=== PATIENT | female | born 1945 | race Caucasian/White ===

== ENCOUNTER 2023-05-15 13:42 | Emergency (ER) | payer MEDICARE, SELFPAY ==
[2023-05-15 13:46] VITALS: BP 156/82
[2023-05-15 14:08] LABS: % Basophils 0.8 % (0-2); % Eosinophils 2.5 % (0-6); % Immature Granulocytes 0.1 % (0-0.5); % Monocytes 8.2 % (1.7-9.3); % Neutrophils 60.4 % (42.2-75.2); Absolute Basophils 0.1 10^3/uL (0-0.2); Absolute Eosinophils 0.2 10^3/uL (0-0.7); Absolute Lymphocytes 2.1 10^3/uL (1.2-3.4); Absolute Monocytes 0.6 10^3/uL (0.1-0.6); Absolute Neutrophils 4.4 10^3/uL (1.4-6.5); Hematocrit 39.6 % (37.0-47.0); Hemoglobin 13.7 g/dL (12.0-16.0); Mean Corp Hgb Conc. 34.6 g/dL (33.0-37.0); Mean Corpuscular Hgb 32.7 pg (27.0-31.0); Mean Corpuscular Volume 94.5 fL (81.0-99.0); Nucleated Red Blood Cells % 0 %; Platelet Count 315 10^3/uL (130-400); Red Blood Cell Count 4.19 10^6/uL (4.20-5.40); Red Cell Dist. Width 12.6 % (11.5-14.5); White Blood Cell Count 7.3 10^3/uL (4.8-10.8)
[2023-05-15 14:09] LABS: Urine Albumin Trace (Neg - Trace); Urine Bilirubin Negative (Negative); Urine Character Clear (Clear); Urine Color Yellow; Urine Glucose Negative (Negative); Urine Ketone Negative (Negative); Urine Leukocyte 1+ (Negative); Urine Nitrite Positive (Negative); Urine Occult Blood Negative (Negative); Urine Urobilinogen Negative (Neg - 1+)
[2023-05-15 14:21] LABS: ALT (SGPT) 27 U/L (0-35); AST (SGOT) 32 U/L (14-36); Albumin 4.3 g/dl (3.5-5.0); Alkaline Phosphatase 68 U/L (38-126); Blood Urea Nitrogen 17 mg/dl (7-17); Calcium 9.9 mg/dl (8.4-10.2); Carbon Dioxide 28 mmol/L (22-30); Chloride 105 mmol/L (98-107); Glucose 109 mg/dl (70-99); Lipase 85 U/L (23-300); Sodium 138 mmol/L (135-145); Total Bilirubin 0.6 mg/dl (0.2-1.3); eGFR > 60.00
[2023-05-15 14:27] LABS: Urine Mucus Few
[2023-05-15 14:28] LABS: Urine Amorphous Seen
[2023-05-15 14:29] LABS: Urine Bacteria Many (Negative)
--- NOTE | 2023-05-15 15:08 | ED.GENMED ---
Addendum entered and electronically signed by Adam Chauhan PA-C 05/18/23 15:31:
Positive Ucx, d/w patient. She is asymptomatic, SHe has hx of chronic recurrent UTI, she states she has had numerous positive urinalyses when asymptomatic. This is likely indicative of colonization. Recommend urology f/u
Original Note:
History of Present Illness
General
Chief Complaint: Abdominal Pain
Source: patient and records
Exam Limitations: none
Time Seen by Provider: 05/15/23 14:53
Nursing documentation reviewed up to this point in time: agreed with
Travel History
Have you had any contact with someone who has COVID-19?: No
Do you have any symptoms of coronavirus? Fever > 100 degrees, chills, cough, shortness of breath, sore throat, loss of taste or smell, muscle aches, or headache?: No
History of Present Illness
History of Present Illness:
77-year-old female 10 days of an uncomfortable feeling in her right abdomen intermittent somewhat crampy no nausea no vomiting for about 12 hours had increased intensity with some loose stools, no fever chills no chest pain no dysuria or frequency
Has had colonoscopies had recurrent polyps that required the removal by Dr. Chavez, also has had recurrent UTIs treated with urinary alkalinization by Dr. Ludwig
Years ago had sounds like a LEEP procedure, 28years ago she had breast lumpectomy
She is also gallbladder appendix and ovaries
Past History
Past History
ED Past Medical History: Cancer (breast)
ED Past Surgical History: Gynecological, Orthopedic and Tonsilectomy; Negative Appendectomy, Bowel resection, Cholecystectomy or
Social History
Tobacco: Non-smoker
Alcohol: None
Drug: None
Personal:
Living: alone
Employment: Employed
Family History
Family History: Other
Review of Systems
Review of Systems
All Other Systems: Not applicable
Constitutional: Denies fever or fatigue
ABD/GI: Reports abdominal pain and other (Mild loose stools)
Endocrine: Reports no symptoms
Hematologic/Lymphatic: Reports no symptoms
Psychiatric: Reports no symptoms
Phy Exam
Physical Exam
Physical Exam:
Physical Exam
General: no apparent distress, not acutely ill
Neck: No jaundice
Heart: s1/s2 regular rate and rhythm, no murmur. equal radial pulses.
Lungs: no acute respiratory distress. clear bilaterally
Abdomen: Mild right lower abdominal tenderness
Neuro: alert and oriented. no focal neurological deficits
Skin: no rash
Psychiatric: well kept. interactive and cooperative
Extremities: no edema.
Course
Orders/Labs/Results
Orders:
Orders
05/15/23 13:59
Complete Blood Count/With Diff Urgent
Comprehensive Metabolic Panel Urgent
Lipase Urgent
Urinalysis Reflex To Culture Urgent
Date Specimen was Collected: 05/15/23
Time Specimen was Collected: 13:49
Urine Microscopic Reflex Cult Urgent
Urine Culture Urgent
MALINDA Source: U
Specimen Description:
Date Specimen was Collected: 05/15/23
Time Specimen was Collected: 13:49
05/15/23 15:04
CT Abd/pel W Iv And Oral Contr Urgent
Comment:
Reason For Exam: right sided abd pain
Iohexol [Omnipaque] See Protocol PO NOW STA
Ketorolac [Toradol] 15 mg IV NOW STA
Abnormal Lab Results
05/15/23
13:59
RBC 4.19 L 10^6/uL
(4.20-5.40)
MCH 32.7 H pg
(27.0-31.0)
Glucose 109 H mg/dl
(70-99)
Urine Nitrite (Reflex) Positive A
(Negative)
Leukocyte Esterase Rfl 1+ A
(Negative)
Urine RBC 3-6 A /HPF
(0-2)
Urine Bacteria (Reflex) Many A
(Negative)
05/15/23 13:59
05/15/23 13:59
Vital Signs
Initial and Last Documented VS:
Initial Vital Signs
Temp Pulse Resp BP Pulse Ox
98.3 F 83 16 156/82 98
05/15/23 13:46 05/15/23 13:46 05/15/23 13:46 05/15/23 13:46 05/15/23 13:46
Last Documented Vital Signs
Temp Pulse Resp BP Pulse Ox
97.9 F 89 16 147/71 96
05/15/23 19:07 05/15/23 19:07 05/15/23 19:07 05/15/23 19:07 05/15/23 19:07
MDM/Problems Addressed
Differential Diagnosis Includes:
Colitis diverticulitis appendicitis ovarian pathology UTI
MDM/Problems Addressed:
Right-sided about
Chronic conditions affecting care:
Colonic polyp recurrent UTI
Acute Exacerbation and/or Progression of Chronic Illness:
Colonic polyp UTI
*Critical Care Note
Total Time (30-74mins, 75-104mins- exclusive of procedures): Not Applicable
Update Note
Update Note:
Update CT report noted patient appears comfortable does have a gallstone and believe this explains her right pelvic pain, however follow-up with her PCP ER for worsening symptoms
ED Attending Note
-
Portions of this chart may have been created with voice recognition software.� Occasional wrong word or��sound alike� substitutions may have occurred due to the inherent limitations of voice recognition software.
Discharge Plan
Departure
Patient Disposition: Home (Routine Discharge)
Date of Disposition: 05/15/23
Time of Disposition: 20:04
Patient with high blood pressure during this ER visit?: No
Condition: Good
Discharge Problem:
Abdominal pain
Instructions: Abdominal Pain
Prescriptions:
No Action
methenamine hippurate 1 GRAM tablet
1 g PO BID
raloxifene 60 MG tablet
60 mg PO DAILY
calcium citrate 200 MG tablet
200 mg PO DAILY
Align 4 MG capsule
4 mg PO DAILY
cranberry extract [Ellura] 200 MG capsule
1 tab PO DAILY
[place] 3/Fish Oil
2,400 mg PO DAILY
multivitamin Tablet
1 tab PO DAILY
Referrals:
Reyes Cottrell MD [Family Provider] - Next open appointment
Activity Restrictions/Additional Instructions:
Ibuprofen every 6-8 hours
Follow-up with your family doctor return to the ER for worsening symptoms
Interventions
Interventions:
*Risk Screen - Suicide Last Done: 05/15/23 13:46
*General Assessment Last Done: 05/15/23 13:46
*Neglect/Abuse Screening Last Done: 05/15/23 13:46
ED- Fall Risk Assessment Last Done: 05/15/23 16:08
*ED COVID-19 Vaccine History Last Done: 05/15/23 16:08
RU-Pjbujq-Wvzsqvbxtx Assessment Last Done: 05/15/23 19:20
[2023-05-15] MEDS: OMNIPAQUE 50 ML PO (16:06)
[2023-05-15 19:05] VITALS: BMI 27.7
[2023-05-15 19:07] VITALS: BP 147/71
--- NOTE | 2023-05-15 19:11 | EDRN ---
For 10 days, pt has had R side abdominal discomfort that comes and goes. Today, it was more uncomfortable. Pt took 2 tylenol and a motrin at 1000 for discomfort. Pt saw primary doctor on and has an outpatient CT scheduled for Tuesday. Pt
has had loose stools. Pt ate breakfast at 0800 and has only had a cup of chicken bouillon since. Pt with decreased appetite. Occasional 'sweep' of nausea. No vomiting. No fever/chills/cough, cp, sob. urinary symptoms, weakness, dizziness,
constipation/diarrhea.
--- NOTE | 2023-05-15 20:05 | ED.GENMED ---
History of Present Illness
General
Chief Complaint: Abdominal Pain
Time Seen by Provider: 05/15/23 14:53
Travel History
Have you had any contact with someone who has COVID-19?: No
Do you have any symptoms of coronavirus? Fever > 100 degrees, chills, cough, shortness of breath, sore throat, loss of taste or smell, muscle aches, or headache?: No
Past History
Past History
ED Past Medical History: Cancer (breast)
ED Past Surgical History: Gynecological, Orthopedic and Tonsilectomy; Negative Appendectomy, Bowel resection, Cholecystectomy or
Social History
Tobacco: Non-smoker
Alcohol: None
Drug: None
Personal:
Living: alone
Employment: Employed
Family History
Family History: Other
Course
Orders/Labs/Results
Orders:
Orders
05/15/23 13:59
Complete Blood Count/With Diff Urgent
Comprehensive Metabolic Panel Urgent
Lipase Urgent
Urinalysis Reflex To Culture Urgent
Date Specimen was Collected: 05/15/23
Time Specimen was Collected: 13:49
Urine Microscopic Reflex Cult Urgent
Urine Culture Urgent
MALINDA Source: U
Specimen Description:
Date Specimen was Collected: 05/15/23
Time Specimen was Collected: 13:49
05/15/23 15:04
CT Abd/pel W Iv And Oral Contr Urgent
Comment:
Reason For Exam: right sided abd pain
Iohexol [Omnipaque] See Protocol PO NOW STA
Ketorolac [Toradol] 15 mg IV NOW STA
Abnormal Lab Results
05/15/23
13:59
RBC 4.19 L 10^6/uL
(4.20-5.40)
MCH 32.7 H pg
(27.0-31.0)
Glucose 109 H mg/dl
(70-99)
Urine Nitrite (Reflex) Positive A
(Negative)
Leukocyte Esterase Rfl 1+ A
(Negative)
Urine RBC 3-6 A /HPF
(0-2)
Urine Bacteria (Reflex) Many A
(Negative)
05/15/23 13:59
05/15/23 13:59
Vital Signs
Initial and Last Documented VS:
Initial Vital Signs
Temp Pulse Resp BP Pulse Ox
98.3 F 83 16 156/82 98
05/15/23 13:46 05/15/23 13:46 05/15/23 13:46 05/15/23 13:46 05/15/23 13:46
Last Documented Vital Signs
Temp Pulse Resp BP Pulse Ox
97.9 F 89 16 147/71 96
05/15/23 19:07 05/15/23 19:07 05/15/23 19:07 05/15/23 19:07 05/15/23 19:07
ED Attending Note
-
Portions of this chart may have been created with voice recognition software.� Occasional wrong word or��sound alike� substitutions may have occurred due to the inherent limitations of voice recognition software.
Discharge Plan
Departure
Patient Disposition: Home (Routine Discharge)
Date of Disposition: 05/15/23
Time of Disposition: 20:04
Patient with high blood pressure during this ER visit?: No
Condition: Good
Discharge Problem:
Abdominal pain
Instructions: Abdominal Pain
Prescriptions:
No Action
methenamine hippurate 1 GRAM tablet
1 g PO BID
raloxifene 60 MG tablet
60 mg PO DAILY
calcium citrate 200 MG tablet
200 mg PO DAILY
Align 4 MG capsule
4 mg PO DAILY
cranberry extract [Ellura] 200 MG capsule
1 tab PO DAILY
[place] 3/Fish Oil
2,400 mg PO DAILY
multivitamin Tablet
1 tab PO DAILY
Referrals:
Reyes Cottrell MD [Family Provider] - Next open appointment
Activity Restrictions/Additional Instructions:
Ibuprofen every 6-8 hours
Follow-up with your family doctor return to the ER for worsening symptoms
Interventions
Interventions:
*Risk Screen - Suicide Last Done: 05/15/23 13:46
*General Assessment Last Done: 05/15/23 13:46
*Neglect/Abuse Screening Last Done: 05/15/23 13:46
ED- Fall Risk Assessment Last Done: 05/15/23 16:08
*ED COVID-19 Vaccine History Last Done: 05/15/23 16:08
DK-Dejkkr-Yhcazzgbrr Assessment Last Done: 05/15/23 19:20
== END 2023-05-15 20:27 | disposition home or self-care (01) ==
LOC: EMR 13:42
PROVIDERS: Emergency Medicine; EMERGENCY PHYSICIAN Emergency Medicine; FAMILY PHYSICIAN Family Medicine
DX: N39.0 Urinary tract infection, site not specified (principal); B96.20 Unspecified Escherichia coli [E. coli] as the cause of diseases classified elsewhere; Z85.3 Personal history of malignant neoplasm of breast; Z87.440 Personal history of urinary (tract) infections; Z90.49 Acquired absence of other specified parts of digestive tract; K80.20 Calculus of gallbladder without cholecystitis without obstruction
CPT/HCPCS: 99285; 96374; 74177; 80053; 81003; 81015; 83690; 85025; 87077; 87086; 87186; Q9967

== ENCOUNTER → 2023-10-17 08:11 | Outpatient (REF) | payer MEDICARE, SELFPAY | LOC: WDC 08:11 | PROVIDERS: ATTENDING PHYSICIAN Obstetrics & Gynecology Gynecology; FAMILY PHYSICIAN Family Medicine | DX: Z12.31 Encounter for screening mammogram for malignant neoplasm of breast (principal) | CPT/HCPCS: 77063; 77067 ==

== ENCOUNTER → 2024-03-09 13:06 | Outpatient (REF) | payer MEDICARE, SELFPAY ==
[2024-03-09 14:09] LABS: % Basophils 0.8 % (0-2); % Eosinophils 3.8 % (0-6); % Immature Granulocytes 0.5 % (0-0.5); % Lymphocytes 24.5 % (20.5-51.1); % Monocytes 9.5 % (1.7-9.3); % Neutrophils 60.9 % (42.2-75.2); Absolute Basophils 0.1 10^3/uL (0-0.2); Absolute Eosinophils 0.3 10^3/uL (0-0.7); Absolute Lymphocytes 1.6 10^3/uL (1.2-3.4); Absolute Monocytes 0.6 10^3/uL (0.1-0.6); Hematocrit 38.5 % (37.0-47.0); Hemoglobin 13.5 g/dL (12.0-16.0); Mean Corp Hgb Conc. 35.1 g/dL (33.0-37.0); Mean Corpuscular Hgb 35.1 pg (27.0-31.0); Nucleated Red Blood Cells % 0 %; Platelet Count 328 10^3/uL (130-400); Red Blood Cell Count 3.85 10^6/uL (4.20-5.40); Red Cell Dist. Width 14.3 % (11.5-14.5); White Blood Cell Count 6.6 10^3/uL (4.8-10.8)
[2024-03-09 15:50] LABS: Blood Urea Nitrogen 20 mg/dl (7-17); Calcium 9.6 mg/dl (8.4-10.2); Carbon Dioxide 29 mmol/L (22-30); Chloride 104 mmol/L (98-107); Glucose 97 mg/dl (70-99); Potassium 4.1 mmol/L (3.5-5.1); Sodium 143 mmol/L (135-145); eGFR > 60.00
== END ==
LOC: RCS 13:06
PROVIDERS: ATTENDING PHYSICIAN Student in an Organized Health Care Education/Training Program; FAMILY PHYSICIAN Family Medicine
DX: Z01.818 Encounter for other preprocedural examination (principal)
CPT/HCPCS: 36415; 80048; 85025; 93005

== ENCOUNTER → 2024-05-02 06:24 | Day surgery (SDC) | payer MEDICARE, SELFPAY | LOC: GI 06:24 | PROVIDERS: ATTENDING PHYSICIAN Internal Medicine Gastroenterology | PROC: 0DBL8ZX Excision of Transverse Colon, Via Natural or Artificial Opening Endoscopic, Diagnostic (ICD-10-PCS; 2024-05-02) | PROC: 0DBN8ZX Excision of Sigmoid Colon, Via Natural or Artificial Opening Endoscopic, Diagnostic (ICD-10-PCS; 2024-05-02) | PROC: 0DBP8ZX Excision of Rectum, Via Natural or Artificial Opening Endoscopic, Diagnostic (ICD-10-PCS; 2024-05-02) | DX: Z12.11 Encounter for screening for malignant neoplasm of colon (principal); Z86.0100 Personal history of colon polyps, unspecified; D12.3 Benign neoplasm of transverse colon; D12.5 Benign neoplasm of sigmoid colon; D12.8 Benign neoplasm of rectum; K57.30 Diverticulosis of large intestine without perforation or abscess without bleeding; K64.8 Other hemorrhoids | CPT/HCPCS: 45380; 88305 ==

== ENCOUNTER 2024-10-01 17:57 | Emergency (ER) | payer MEDICARE, SELFPAY ==
[2024-10-01 18:00] VITALS: BP 173/89
[2024-10-01 18:24] LABS: % Eosinophils 3.8 % (0-6); % Immature Granulocytes 0.1 % (0-0.5); % Lymphocytes 23.4 % (20.5-51.1); % Monocytes 10.9 % (1.7-9.3); % Neutrophils 60.8 % (42.2-75.2); Absolute Basophils 0.1 10^3/uL (0-0.2); Absolute Eosinophils 0.3 10^3/uL (0-0.7); Absolute Lymphocytes 1.8 10^3/uL (1.2-3.4); Absolute Monocytes 0.9 10^3/uL (0.1-0.6); Absolute Neutrophils 4.7 10^3/uL (1.4-6.5); Hematocrit 40.2 % (37.0-47.0); Hemoglobin 14.1 g/dL (12.0-16.0); Mean Corp Hgb Conc. 35.1 g/dL (33.0-37.0); Mean Corpuscular Hgb 34.3 pg (27.0-31.0); Mean Corpuscular Volume 97.8 fL (81.0-99.0); Mean Platelet Volume 8.7 fL (7.4-10.4); Nucleated Red Blood Cells % 0 %; Platelet Count 353 10^3/uL (130-400); Red Blood Cell Count 4.11 10^6/uL (4.20-5.40); Red Cell Dist. Width 13.6 % (11.5-14.5); White Blood Cell Count 7.8 10^3/uL (4.8-10.8)
[2024-10-01 18:41] LABS: ALT (SGPT) 21 U/L (0-35); AST (SGOT) 25 U/L (14-36); Albumin 4.5 g/dl (3.5-5.0); Alkaline Phosphatase 88 U/L (38-126); Blood Urea Nitrogen 13 mg/dl (7-17); Calcium 10.2 mg/dl (8.4-10.2); Carbon Dioxide 28 mmol/L (22-30); Chloride 107 mmol/L (98-107); Glucose 106 mg/dl (70-99); Potassium 4.8 mmol/L (3.5-5.1); Sodium 142 mmol/L (135-145); Total Bilirubin 0.4 mg/dl (0.2-1.3); Total Protein 7.5 g/dl (6.3-8.2); eGFR > 60.00
[2024-10-01 21:02] VITALS: BMI 28.0
[2024-10-01 21:05] VITALS: BP 164/84
[2024-10-01 21:32] LABS: Urine Albumin Negative (Neg - Trace); Urine Bilirubin Negative (Negative); Urine Character Clear (Clear); Urine Color Yellow; Urine Glucose Negative (Negative); Urine Ketone Negative (Negative); Urine Leukocyte 1+ (Negative); Urine Nitrite Negative (Negative); Urine Occult Blood 2+ (Negative); Urine Urobilinogen Negative (Neg - 1+)
[2024-10-01 21:47] LABS: Urine Bacteria Moderate (Negative); Urine Red Blood Cell 0-2 /HPF (0-2)
[2024-10-01 22:00] VITALS: BP 148/79
--- NOTE | 2024-10-01 22:54 | ED.GENMED ---
History of Present Illness
General
Chief Complaint: Back Pain
Time Seen by Provider: 10/01/24 21:56
History of Present Illness
History of Present Illness:
79-year-old female with history of frequent UTIs on Bifidobacterium presenting to the emergency department for back pain. Patient notes about 2 weeks ago she was lifting furniture by herself. The following day she started to have generalized lower
back pain. She had a routine follow-up appoint with her urologist, was told that her urine dipstick was abnormal and a urine culture was sent. She then followed up with her primary care doctor regarding the back pain, with urine culture suspected
to be positive and patient was started on Keflex. She notes the back pain has overall been improving with modalities such as ibuprofen and lidocaine patches, as well as cyclobenzaprine, however started to be constipated. She took MiraLAX 1 time
without significant relief. Denies any vomiting. She presents today because she wanted to make sure that she did not have a kidney infection. Denies any urinary complaints. Denies additional acute medical complaints
Past History
Past History
ED Past Medical History: Cancer (breast)
ED Past Surgical History: Gynecological, Orthopedic and Tonsilectomy; Negative Appendectomy, Bowel resection, Cholecystectomy or
Social History
Tobacco: Non-smoker
Alcohol: None
Drug: None
Personal:
Living: alone
Employment: Employed
Family History
Family History: Other
Phy Exam
Physical Exam
Physical Exam:
General: Well-appearing, no clinical signs of dehydration, nontoxic and in no acute distress
HEENT: protecting airway
Neck: appears supple
CV: Normal heart rate, regular rhythm
Resp: No accessory muscle use, no increased work of breathing, lungs clear to auscultation bilaterally
Abd: Soft and non-distended, no tenderness to palpation. No CVA tenderness.
Extremities: No deformities, no swelling. No midline spinal tenderness. Mild generalized tenderness to the musculature of the mid back. No overlying skin changes
Neuro: alert, no focal neurologic deficit
: deferred
Rectal: deferred
Psych: Normal affect
Skin: Intact
Course
Orders/Labs/Results
Orders:
Orders
10/01/24 18:14
Complete Blood Count/With Diff Urgent
Comprehensive Metabolic Panel Urgent
10/01/24 21:25
Urinalysis Reflex To Culture Urgent
Date Specimen was Collected: 10/01/24
Time Specimen was Collected: 21:23
Urine Microscopic Reflex Cult Urgent
Urine Culture Urgent
MALINDA Source: U
Specimen Description:
Date Specimen was Collected: 10/01/24
Time Specimen was Collected: 21:23
Abnormal Lab Results
10/01/24 10/01/24
18:14 21:25
RBC 4.11 L 10^6/uL
(4.20-5.40)
MCH 34.3 H pg
(27.0-31.0)
Absolute Monos (auto) 0.9 H 10^3/uL
(0.1-0.6)
Monocytes % 10.9 H %
(1.7-9.3)
Glucose 106 H mg/dl
(70-99)
Ur Occult Blood Reflex 2+ A
(Negative)
Leukocyte Esterase Rfl 1+ A
(Negative)
Urine Bacteria (Reflex) Moderate A
(Negative)
10/01/24 18:14
10/01/24 18:14
Vital Signs
Initial and Last Documented VS:
Initial Vital Signs
Temp Pulse Resp BP Pulse Ox
98.2 F 82 16 173/89 97
10/01/24 18:00 10/01/24 18:00 10/01/24 18:00 10/01/24 18:00 10/01/24 18:00
Last Documented Vital Signs
Temp Pulse Resp BP Pulse Ox
98.2 F 81 18 148/79 95
10/01/24 18:00 10/01/24 22:30 10/01/24 21:05 10/01/24 22:00 10/01/24 22:55
MDM/Problems Addressed
MDM/Problems Addressed:
79-year-old female presenting to the emergency department for lower back pain. Vital signs on arrival are significant for high blood pressure, however resolved without intervention.
On exam patient is resting comfortably, no acute distress or discomfort. Overall reassuring examination. Regarding patient's back pain, does appear consistent with musculoskeletal etiology. Do not suspect any concerning etiology to patient's
presenting symptoms. Do not suspect any spinal fracture in the absence of any direct trauma, and no midline spinal tenderness. No fever, systemic symptoms, or midline tenderness, without concern for spinal abscess or infection. No red flag such
as bowel or bladder incontinence, focal weakness, or any sensory deficits on exam, without present concern for spinal compression. No CVA tenderness with lower suspicion for pyelonephritis. In addition, no leukocytosis and urine obtained without
significant sign of infection. Regarding patient's constipation, minimal distention to the abdomen, soft and nondistended without any focal tenderness. Without present concern for obstruction. No present in September. Patient notes that her back pain
is overall improving with ibuprofen. Advised continuing this medication. Does note that her constipation started after taking the cyclobenzaprine, which is a side effect of the medication. Advised that she stop this medication and start a daily
regimen for constipation including MiraLAX and Dulcolax. Also advise close outpatient primary care follow-up. Ultimately feel stable for discharge. Return precautions discussed and patient verbalized understanding
*Pulse Oximetry
SaO2: 95
Oxygen Mode of Delivery: Room air
Patient hypoxic: no
*Critical Care Note
Total Time (30-74mins, 75-104mins- exclusive of procedures): Not Applicable
ED Attending Note
-
Portions of this chart may have been created with voice recognition software.� Occasional wrong word or��sound alike� substitutions may have occurred due to the inherent limitations of voice recognition software.
Discharge Plan
Departure
Patient Disposition: Home (Routine Discharge)
Date of Disposition: 10/01/24
Time of Disposition: 22:55
Patient with high blood pressure during this ER visit?: Yes
Condition: Good
Discharge Problem:
Constipation, Musculoskeletal back pain
Instructions: Low Back Pain (DC), Constipation in adults - ED discharge instructions, BLOOD PRESSURE
Prescriptions:
No Action
methenamine hippurate 1 GRAM tablet
1 g PO BID
raloxifene 60 MG tablet
60 mg PO DAILY
calcium citrate 200 MG tablet
200 mg PO DAILY
Align (B.infantis) 4 MG capsule
4 mg PO DAILY
cranberry extract [Ellura] 200 MG capsule
1 tab PO DAILY
[place] 3/Fish Oil
2,400 mg PO DAILY
multivitamin Tablet
1 tab PO DAILY
ibuprofen 400 mg tablet
400 mg PO Q8H PRN (Reason: fever or pain) Qty: 20 0RF
Referrals:
Reyes Cottrell MD [Family Provider, Family Practice]
Activity Restrictions/Additional Instructions:
You were seen in the emergency department for back pain
You were found to have reassuring laboratory analysis and urinalysis. We suspect that you are constipated. Please take MiraLAX and additional stool softener such as Dulcolax daily until your constipation improves.
Please follow-up closely with your primary care physician.
Return to the emergency department for any worsening of your symptoms, or any development of chest pain, difficulty breathing, abdominal pain with persistent vomiting and inability to tolerate food or liquid by mouth (concern for dehydration),
weakness, headache or confusion, fever greater than 100.4, or any additional symptoms that are concerning to you.
Thank you for choosing [facility].
Interventions
Interventions:
*Risk Screen - Suicide Last Done: 10/01/24 18:02
*General Assessment Last Done: 10/01/24 21:02
*Neglect/Abuse Screening Last Done: 10/01/24 18:02
*ED- Fall Risk Assessment Last Done: 10/01/24 21:02
*ED COVID-19 Vaccine History Last Done: 10/01/24 21:02
*Nursing Disposition Last Done: 10/01/24 23:06
ED-Musculoskeletal Assessment Last Done: 10/01/24 21:08
Discharge Date and Time
Discharge Date/Time: 10/01/24 23:06
Print Language: [id number]
== END 2024-10-01 23:06 | disposition home or self-care (01) ==
LOC: EMR 17:57
PROVIDERS: Student in an Organized Health Care Education/Training Program; EMERGENCY PHYSICIAN Student in an Organized Health Care Education/Training Program; FAMILY PHYSICIAN Family Medicine
DX: M54.50 Low back pain, unspecified (principal); K59.00 Constipation, unspecified; R03.0 Elevated blood-pressure reading, without diagnosis of hypertension; Z87.440 Personal history of urinary (tract) infections
CPT/HCPCS: 99283; 80053; 81003; 81015; 85025; 87086; 87088

== ENCOUNTER → 2024-10-29 10:54 | Outpatient (REF) | payer MEDICARE, SELFPAY | LOC: RAD 10:54 | PROVIDERS: ATTENDING PHYSICIAN Nurse Practitioner Adult Health; FAMILY PHYSICIAN Family Medicine | DX: R14.0 Abdominal distension (gaseous) (principal); R10.2 Pelvic and perineal pain | CPT/HCPCS: 76830; 76856 ==

== ENCOUNTER → 2024-10-30 07:17 | Outpatient (REF) | payer MEDICARE, SELFPAY | LOC: WDC 07:17 | PROVIDERS: ATTENDING PHYSICIAN Obstetrics & Gynecology Gynecology; FAMILY PHYSICIAN Family Medicine | DX: Z12.31 Encounter for screening mammogram for malignant neoplasm of breast (principal); Z85.3 Personal history of malignant neoplasm of breast | CPT/HCPCS: 77063; 77067 ==

== ENCOUNTER → 2025-01-05 08:46 | Outpatient (REF) | payer MEDICARE, SELFPAY | LOC: PAVMRI 08:46 | PROVIDERS: ATTENDING PHYSICIAN Physical Medicine & Rehabilitation; FAMILY PHYSICIAN Family Medicine | DX: M54.16 Radiculopathy, lumbar region (principal) | CPT/HCPCS: 72148 ==

== ENCOUNTER → 2025-02-25 09:00 | Outpatient (REF) | payer MEDICARE, SELFPAY | LOC: RAD 09:00 | PROVIDERS: ATTENDING PHYSICIAN Surgery; FAMILY PHYSICIAN Family Medicine; REFERRING PHYSICIAN Physical Medicine & Rehabilitation | DX: R93.89 Abnormal findings on diagnostic imaging of other specified body structures (principal); Z85.3 Personal history of malignant neoplasm of breast | CPT/HCPCS: 78306; A9503 ==